=== PATIENT | male | born 1960 | race Two or more races ===

== ENCOUNTER 2018-09-02 07:19 | Day surgery (SDC) | payer OTHER ==
[2018-08-29 17:13] VITALS: BMI 26.6
[2018-09-02] MEDS ORDERED: PROPOFOL 20 ML ONE (09:11)
[2018-09-02] MEDS ORDERED: MIDAZOLAM HCL 2 MG/2 ML SINGLE DOSE VIAL ONE (09:11)
--- NOTE | 2018-09-02 09:40 | OP ---
Operative Note - Note: Operative Date: 09/02/18 Pre-Operative Diagnosis: Left renal stone Operation: Left ESWL Findings: 5 mm mid pole Left renal stone Surgeon: Elan Nielson Anesthesia: Fractional Estimated Blood Loss (mls): 0
[2018-09-02] MEDS ORDERED: ACETAMINOPHEN 325 MG TABLET (FP) ONE (11:25)
[2018-09-02 12:00] VITALS: BP 111/74; PULSE 59; TEMP 97.9
[2018-09-02] MEDS ORDERED: ACETAMINOPHEN 325 MG TABLET (FP) PO ONE (13:08)
--- NOTE | 2018-09-02 19:36 | OP ---
DATE OF OPERATION: 09/02/2018 PREOPERATIVE DIAGNOSIS: Left renal stone. POSTOPERATIVE DIAGNOSIS: Left renal stone. PROCEDURE: Left extracorporeal shock wave lithotripsy. ATTENDING: Yoni Osorio MD ANESTHESIA: Fractional. DESCRIPTION OF OPERATION: The patient was brought in the operating room, placed in supine position on the operating room table. Ultrasonography and fluoroscopy were performed. A 5-mm left mid-pole stone was identified. At this point, anesthesia and preoperative antibiotics were administered. Shock wave lithotripsy was started. There were no complications noted. The patient tolerated the procedure very well. YONI OSORIO M.D. [id number]
== END 2018-09-02 11:50 | disposition home or self-care (01) ==
LOC: JASU-SURG 07:19
PROVIDERS: ATTEND Urology
PROC: 0TF4XZZ Fragmentation in Left Kidney Pelvis, External Approach (ICD-10-PCS; principal; 2018-09-02 14:45)
DX: N20.0 Calculus of kidney (principal)

== ENCOUNTER 2020-04-26 09:52 | Emergency (ER) | payer OTHER ==
[2020-04-26 10:02] VITALS: BP 119/62; PULSE 62; TEMP 98.5; BMI 26.6
--- NOTE | 2020-04-26 10:30 | PDOC ---
History of Present Illness - General Chief Complaint: Pain Stated Complaint: LT SHOULDER PAIN Time Seen by Provider: 04/26/20 10:09 History Source: Patient Exam Limitations: Clinical Condition - History of Present Illness Initial Comments: 04/26/20 10:26 Patient with no significant past medical history present with complaint of left shoulder and right lower back pain status post trip and fall 2 days ago on a curbside. Denies hitting head during fall. Patient reported localized pain to top and posterior aspect of left shoulder and right lower back. Patient has not taken anything for pain. Reported increased pain with elevation of left arm and increased pain to lower back with walking. Denies saddle paresthesia, urinary or fecal incontinence. Denies radiculopathy. Denies history of shoulder or back surgery. Denies any other symptoms Occurred: reports: other (2 days ago) Severity: reports: moderate Pain Location: reports: back, upper extremity (left shoulder pain) Method of Injury: Yes: fall Loss of Consciousness: no loss of consciousness Associated Symptoms (Fall): muscle spasms (lower back) Past History - Medical History Allergies/Adverse Reactions: Allergies Allergy/AdvReac Type Severity Reaction Status Date / Time aspirin AdvReac Mild Verified 04/26/20 09:58 Home Medications: Ambulatory Orders Methocarbamol [Robaxin -] 500 mg PO BID PRN #14 tablet 04/26/20 Methylprednisolone [Medrol Dose Cory] 4 mg PO ASDIR #21 tablet 04/26/20 Anemia: No Asthma: No Cancer: No Cardiac Disorders: No CVA: No COPD: No CHF: No Dementia: No Diabetes: No GI Disorders: No Disorders: No HTN: No Hypercholesterolemia: No Kidney Stones: Yes Liver Disease: No Seizures: No Thyroid Disease: No - Immunization History Immunization Up to Date: No - Psycho-Social/Smoking History Smoking Status: No Smoking History: Never smoked Have you smoked in the past 12 months: No Number of Cigarettes Smoked Daily: 0 Information on smoking cessation initiated: No - Substance Abuse Hx (Audit-C & DAST Scrn) How often the patient has a drink containing alcohol: Monthly or less Number of drinks the patient has on a typical day: 1 or 2 How often the patient has six or more drinks on one occasion: Never Score: In Men: 4 or > Positive; In Women: 3 or > Positive: 1 Screen Result (Pos requires Nsg. Audit-10AR): Negative In the last yr the pt used illegal drug/Rx for NonMed reason: No Score: Yes response is considered Positive: 0 Screen Result (Positive result requires Nsg. DAST-10): Negative Review of Systems - Review of Systems Able to Perform ROS?: Yes Constitutional: No: Chills, Fever, Malaise HEENTM: No: Symptoms Reported, See HPI, Eye Pain, Blurred Vision, Tearing, Recent change in vision, Double Vision, Cataracts, Ear Pain, Ocular Prothesis, Ear Discharge, Nose Pain, Nose Congestion, Tinnitus, Nose Bleeding, Hearing Loss, Throat Pain, Throat Swelling, Mouth Pain, Dental Problems, Difficulty Swallowing, Mouth Swelling, Other Respiratory: No: Symptoms reported, See HPI, Cough, Orthopnea, Shortness of Breath, SOB with Exertion, SOB at Rest, Stridor, Wheezing, Productive cough, Hemoptysis, Other Cardiac (ROS): No: Symptoms Reported, Other ABD/GI: No: Symptoms Reported, Nausea, Vomiting : No: Symptoms Reported, See HPI Musculoskeletal: Yes: Symptoms Reported, See HPI, Back Pain (right lower back), Joint Pain (left shoulder), Muscle Pain (lower back) Integumentary: No: Symptoms Reported Neurological: No: Numbness, Paresthesia, Tingling All Other Systems: Reviewed and Negative *Physical Exam - Vital Signs Last Vital Signs Temp Pulse Resp BP Pulse Ox 98.5 F 62 18 119/62 100 04/26/20 09:54 04/26/20 09:54 04/26/20 09:54 04/26/20 09:54 04/26/20 09:54 - Physical Exam 04/26/20 10:32 GENERAL: Well developed, well nourished. Awake and alert. No acute distress. PULMONARY: No evidence of respiratory distress. MUSCULOSKELETAL : for moderate point tenderness over AC joint to left shoulder and spine of left scapula. Able to elevate left upper arm to 180 degrees. Negative left arm drop. 5 out of 5 strength to left upper extremity. Mild tenderness over right paravertebral muscle of lumbosacral spine of L2-S1. No midline tenderness. No tenderness to left side of lower back. No radiculopathy. SKIN: Warm and dry. Normal capillary refill. No bruising or ecchymosis NEUROLOGICAL: Alert, awake, appropriate. No motor deficits in the lower extremities. Gait is normal without ataxia. PSYCHIATRIC: Cooperative. Good eye contact. Appropriate mood and affect. General Appearance: Yes: Nourished, Appropriately Dressed. No: Apparent Distress ED Treatment Course - RADIOLOGY Radiology Studies Ordered: Category Date Time Status SHOULDER W/TRANS-RIGHT [RAD] Stat Radiology 04/26/20 10:14 Ordered SPINE-LUMBAR SACRAL [RAD] Stat Radiology 04/26/20 10:14 Ordered Medical Decision Making - Medical Decision Making 04/26/20 10:30 Patient with no significant past medical history present with complaint of left shoulder and right lower back pain status post trip and fall 2 days ago on a curbside. Denies hitting head during fall. Patient reported localized pain to top and posterior aspect of left shoulder and right lower back. Patient has not taken anything for pain. Reported increased pain with elevation of left arm and increased pain to lower back with walking. Denies saddle paresthesia, urinary or fecal incontinence. Denies radiculopathy. Denies history of shoulder or back surgery. Denies any other symptoms Clinical exam significant for moderate point tenderness over AC joint to left shoulder and spine of left scapula. Able to elevate left upper arm to 180 degrees. Negative left arm drop. 5 out of 5 strength to left upper extremity. Mild tenderness over right paravertebral muscle of lumbosacral spine of L2-S1. No midline tenderness. No tenderness to left side of lower back. No radiculopathy. Patient symptoms likely back and shoulder strain versus less likely fracture. X-ray of left shoulder and lumbosacral ordered to rule acute abnormality. Treat based on imaging results 04/26/20 12:38 X-ray of left shoulder and lumbosacral unremarkable and shows no acute abnormality. Patient symptoms likely shoulder and back sprain and stable for discharge on Medrol Cory for inflammatory effect due to history of aspirin and Robaxin for spasm with orthopedics follow-up as needed. Patient walked out of department with normal gait in no acute distress Discharge - Discharge Information Problems reviewed: Yes Clinical Impression/Diagnosis: Muscle strain Sprain of left shoulder Qualifiers: Encounter type: initial encounter Shoulder sprain type: unspecified sprain Qualified Code(s): S43.402A - Unspecified sprain of left shoulder joint, initial encounter Lumbago without sciatica Qualifiers: Chronicity: acute Back pain laterality: left Qualified Code(s): M54.5 - Low back pain Fall Qualifiers: Encounter type: initial encounter Qualified Code(s): W19.XXXA - Unspecified fall, initial encounter Condition: Stable Disposition: HOME - Admission No - Additional Discharge Information Prescriptions: Methylprednisolone [Medrol Dose Cory] 4 mg PO ASDIR #21 tablet Methocarbamol [Robaxin -] 500 mg PO BID PRN #14 tablet PRN Reason: spasm - Follow up/Referral - Patient Discharge Instructions Patient Printed Discharge Instructions: DI for Shoulder Sprain, DI for Back Strain or Sprain Additional Instructions: X-ray of your left shoulder and lower back shows no acute fracture or dislocation. Your pain is likely from back and shoulder sprain from fall. Take prescribed medication as needed for pain. Apply heat to lower back and shoulder as needed for pain. Follow-up referred orthopedics if symptoms persist for more than 4 days La radiografa de jose hombro audie y la parte baja de la espalda no muestra ninguna fractura o dislocacin aguda. Es probable que jose dolor se deba a un esguince de espalda y hombro debido a carin cada. [place] los medicamentos recetados segn sea necesario para el dolor. Aplique calor en la espalda baja y el hombro segn sea necesario para el dolor. Ortopedia derivada de seguimiento si los sntomas persisten patsy ms de 4 valentine - Post Discharge Activity Work/Back to School Note: Back to Work
== END 2020-04-26 11:02 | disposition home or self-care (01) ==
LOC: JERFT 09:52
DX: S43.402A Unspecified sprain of left shoulder joint, initial encounter (principal); M54.5 Low back pain
CPT/HCPCS: 72100-TC-FY; 73030-TC-LT-FY; 99284-25

== ENCOUNTER 2021-08-29 07:42 | Emergency (ER) | payer OTHER ==
[2021-08-29 08:00] VITALS: BP 122/70; PULSE 60; TEMP 97.6; BMI 25.7
[2021-08-29] MEDS ORDERED: SODIUM CHLORIDE 0.9% 500 ML INFUS.BAG IV ONE (09:03)
[2021-08-29 11:31] LABS: BASO % 1.2 % (0-2.0); EOS % 2.3 % (0-4.5); HEMATOCRIT 46.6 % (35.4-49); LYMPH % 44.2 % (8-40); MCH 28.7 pg (25.7-33.7); MCHC 32.1 g/dl (32.0-35.9); MEAN CELL VOLUME 89.5 fl (80-96); MEAN PLT VOLUME 11.3 fl (7.5-11.1); MONO % 12.5 % (3.8-10.2); NEUT % 39.8 % (42.8-82.8); PLATELET COUNT 167 10^3/uL (134-434); RBC 5.21 M/mm3 (4.00-5.60); RDW 13.9 % (11.9-15.9); WHITE BLOOD COUNT 2.7 K/mm3 (4.0-10.0)
[2021-08-29 11:39] LABS: INR 1.12 (0.83-1.09); PROTHROMBIN TIME (PATIENT) 12.9 SEC (9.7-13.0)
[2021-08-29 11:41] LABS: ACTIVATED PTT 30.9 SECONDS (25.2-36.5)
[2021-08-29 11:47] LABS: URINE APPEARANCE CLEAR; URINE BILIRUBIN NEGATIVE (NEGATIVE); URINE COLOR YELLOW; URINE GLUCOSE (UA) NEGATIVE (NEGATIVE); URINE KETONE NEGATIVE (NEGATIVE); URINE LEUK ESTERASE NEGATIVE (NEGATIVE); URINE NITRITE NEGATIVE (NEGATIVE); URINE PROTEIN NEGATIVE (NEGATIVE); URINE UROBILINOGEN 0.2 mg/dL (0.2-1.0)
[2021-08-29 11:55] LABS: BLOOD UREA NITROGEN 13.8 mg/dL (7-18); CALCIUM 9.9 mg/dL (8.5-10.1)
[2021-08-29 11:56] LABS: ALBUMIN 4.3 g/dl (3.4-5.0)
[2021-08-29 11:59] LABS: CREATININE 0.9 mg/dL (0.55-1.3)
[2021-08-29 12:00] LABS: BILIRUBIN,TOTAL 1.3 mg/dL (0.2-1); TOT PROT 7.7 g/dl (6.4-8.2)
== END 2021-08-29 15:36 | disposition home or self-care (01) ==
LOC: JER 07:42
DX: R10.32 Left lower quadrant pain (principal)
CPT/HCPCS: 36415; 74176-TC; 80053; 81003; 85025; 85610; 85730; 86850; 86900; 86901; 87086; 99284-25

== ENCOUNTER 2022-01-17 10:30 | Emergency (ER) | payer OTHER ==
[2022-01-17 10:50] VITALS: BP 100/60; PULSE 55; TEMP 97.4; BMI 24.1
[2022-01-17] MEDS ORDERED: KETOROLAC TROMETHAMINE 15 MG/ML VIAL IVPUSH ONE (12:10)
[2022-01-17] MEDS ORDERED: SODIUM CHLORIDE 0.9% 500 ML INFUS.BAG IV ONE (12:10)
[2022-01-17] MEDS ORDERED: KETOROLAC TROMETHAMINE 30 MG/1 ML VIAL ONE (12:19)
[2022-01-17 12:55] LABS: PH,URINE 8.5 (5.0-8.0); URINE APPEARANCE CLEAR; URINE BILIRUBIN NEGATIVE (NEGATIVE); URINE COLOR YELLOW; URINE GLUCOSE (UA) NEGATIVE (NEGATIVE); URINE KETONE NEGATIVE (NEGATIVE); URINE LEUK ESTERASE NEGATIVE (NEGATIVE); URINE NITRITE NEGATIVE (NEGATIVE); URINE PROTEIN NEGATIVE (NEGATIVE); URINE UROBILINOGEN 0.2 mg/dL (0.2-1.0)
[2022-01-17 12:57] LABS: BASO % 1.4 % (0-2.0); HEMATOCRIT 42.1 % (35.4-49); HEMOGLOBIN 13.7 GM/dL (11.7-16.9); LYMPH % 43.1 % (8-40); MCH 28.9 pg (25.7-33.7); MCHC 32.6 g/dl (32.0-35.9); MEAN CELL VOLUME 88.7 fl (80-96); MEAN PLT VOLUME 10.7 fl (7.5-11.1); MONO % 13.2 % (3.8-10.2); NEUT % 40.3 % (42.8-82.8); PLATELET COUNT 167 10^3/uL (134-434); RBC 4.75 M/mm3 (4.00-5.60); RDW 13.5 % (11.9-15.9); WHITE BLOOD COUNT 3.1 K/mm3 (4.0-10.0)
[2022-01-17 13:08] LABS: CALCIUM 8.9 mg/dL (8.5-10.1)
[2022-01-17 13:09] LABS: ALBUMIN 3.8 g/dl (3.4-5.0)
[2022-01-17 13:12] LABS: CREATININE 0.9 mg/dL (0.55-1.3)
[2022-01-17 13:13] LABS: TOT PROT 7.4 g/dl (6.4-8.2)
[2022-01-17] MEDS ORDERED: LIDOCAINE 5% TOPICAL PATCH TP ONE (14:48)
[2022-01-17] MEDS ORDERED: ACETAMINOPHEN 500 MG TABLET (FP) PO ONE (14:48)
[2022-01-17] MEDS ORDERED: LIDOCAINE 5% TOPICAL PATCH ONE (14:52)
[2022-01-17] MEDS ORDERED: ACETAMINOPHEN 500 MG TABLET (FP) ONE (14:52)
[2022-01-17] MEDS ORDERED: LIDOCAINE PATCH REMOVAL MC SCH (22:00)
== END 2022-01-17 15:21 | disposition home or self-care (01) ==
LOC: JERFT 10:30
PROC: 3E0333Z Introduction of Anti-inflammatory into Peripheral Vein, Percutaneous Approach (ICD-10-PCS; principal; 2022-01-17)
DX: M54.50 Low back pain, unspecified (principal)
CPT/HCPCS: 36415; 74177-TC; 80053; 81003; 85025; 87086; 99285-25; Q9967

== ENCOUNTER 2024-04-16 20:49 | Emergency (ER) | payer OTHER ==
[2024-04-16 21:00] VITALS: BMI 25.7
[2024-04-16] MEDS: SODIUM CHLORIDE 0.9% 500 ML INFUS.BAG IV ONE (21:51)
[2024-04-16 22:02] LABS: BASO % 0.8 % (0-2.0); EOS % 2.1 % (0-4.5); HEMATOCRIT 41.5 % (35.4-49); HEMOGLOBIN 13.7 GM/dL (11.7-16.9); LYMPH % 36.4 % (8-40); MCH 29.2 pg (25.7-33.7); MCHC 32.9 g/dl (32.0-35.9); MEAN CELL VOLUME 88.8 fl (80-96); MEAN PLT VOLUME 10.9 fl (7.5-11.1); MONO % 14.8 % (3.8-10.2); NEUT % 45.9 % (42.8-82.8); PLATELET COUNT 141 10^3/uL (134-434); RBC 4.68 M/mm3 (4.00-5.60); RDW 13.9 % (11.9-15.9); WHITE BLOOD COUNT 3.3 K/mm3 (4.0-10.0)
[2024-04-16 22:58] LABS: ALBUMIN 3.8 g/dl (3.4-5.0); BLOOD UREA NITROGEN 20.8 mg/dL (7-18); CALCIUM 9.3 mg/dL (8.5-10.1)
[2024-04-16 23:02] LABS: CREATININE 0.9 mg/dL (0.55-1.3)
[2024-04-16 23:03] LABS: BILIRUBIN,TOTAL 0.4 mg/dL (0.2-1); TOT PROT 6.8 g/dl (6.4-8.2)
[2024-04-16 23:52] LABS: HIV INTERPRETATION NEGATIVE (NEGATIVE)
[2024-04-17 00:48] VITALS: BP 125/79; PULSE 62; RESP 17; TEMP 98.6
== END 2024-04-17 00:48 | disposition home or self-care (01) ==
LOC: JER 20:49
DX: R42 Dizziness and giddiness (principal); R53.83 Other fatigue; H53.149 Visual discomfort, unspecified; R06.00 Dyspnea, unspecified; Z20.822 Contact with and (suspected) exposure to COVID-19
CPT/HCPCS: 0241U-QW; 36415; 80053; 82962; 84484; 85025; 86803; 87389; 93005; 93010; 99283-25